=== PATIENT | female | born 1980 | race Caucasian/White ===

== ENCOUNTER 2022-04-14 14:36 | Emergency (ER) | payer OTHER ==
[~2022-04-14] VITALS: Ht 165.1 cm; Wt 156.0 kg
[2022-04-14] MEDS ORDERED: Bactrim Ds Tab1 EACH PO (15:41)
== END 2022-04-14 15:49 | disposition home or self-care (01) ==
LOC: ER 14:36
DX: L08.9 Local infection of the skin and subcutaneous tissue, unspecified (principal); B88.8 Other specified infestations
CPT/HCPCS: 99282